=== PATIENT | female | born 1950 | race Caucasian/White ===

== ENCOUNTER 2016-06-13 13:25 | Outpatient (RCR) | payer MEDICARE, OTHER ==
[~2016-06-13 13:25] MED LIST: ALB.5NB20 HHN; ARIP2TAB3 PO; ASP325T PO; CHOL400T3 PO; CLD600T PO; COLE1TAB PO; CYCL10TA9 PO; DIPH1TAB45; FEXO-104 PO; FLT11013 IH; FLUT1DIS26 IH; FURO40TA4 PO; GBPN300C; GENFIBROZIL; HAIR SKIN NAILS PO; HC2.5C30 PR; HC2.5C30 TOP; HYDR-34; HYDR-3820 PO; HYDR1TAB86 PO; HYDR200T46 PO; HYDROXYCHLOROQUINE S; IBP800T; INSASP10V; INSU100C4 SQ; INSU100I11 SQ; INSU100I13 SQ; INSU100V16 SQ; INSU100V8; LEVA1.25 IH; LORA10TA7 PO; LOSA100T7 PO; LSNP10T; MECL25TA3 PO; MELO-195 PO; METO50TA2 PO; MNTL10T PO; MTF500T PO; MTP100TCR PO; MULT-608 PO; OMEP20CA12; PEG4000S2 PO; POTA10CA43 PO; PROP1TAB77; QUININE SULFATE; ROPI2TAB28 PO; RSG4T; SERT100T PO; SRTR100T; TAPE100T PO; TERB15CR8 TP; TIOT18CA IH; VILA40TA PO; [UNRECOGNIZED DRUG - OTHER]; [UNRECOGNIZED DRUG - REMARK]
== END 2016-06-30 12:05 | disposition home or self-care (01) ==
PROVIDERS: ATTEND Family Medicine
DX: M17.11 Unilateral primary osteoarthritis, right knee (principal); R53.1 Weakness

== ENCOUNTER → 2016-09-04 | Outpatient (CLI) | payer MEDICARE, OTHER ==
[2016-09-04 11:54] LABS: BASOPHILS % (AUTO) 0 % (0-10); EOSINOPHILS # (AUTO) 0.2 10^3/uL (0.0-0.3); EOSINOPHILS % (AUTO) 1 % (0-10); LYMPHOCYTES # (AUTO) 1.5 X 10^3 (1.0-4.0); LYMPHOCYTES % (AUTO) 11 % (12-44); MEAN CORPUSCULAR HEMOGLOBIN 29 PG (25-34); MEAN CORPUSCULAR HGB CONC 32 G/DL (32-36); MEAN CORPUSCULAR VOLUME 90 FL (80-99); MEAN PLATELET VOLUME 10.5 FL (7.4-10.4); MONOCYTES # (AUTO) 0.9 X 10^3 (0.0-1.0); MONOCYTES % (AUTO) 6 % (0-12); NEUTROPHILS # (AUTO) 11.3 X 10^3 (1.8-7.8); NEUTROPHILS % (AUTO) 81 % (42-75); PLATELET COUNT 266 10^3/uL (130-400); RED BLOOD COUNT 4.65 10^6/uL (4.35-5.85); RED CELL DISTRIBUTION WIDTH 13.6 % (10.0-14.5)
[2016-09-04 12:12] LABS: BILIRUBIN,TOTAL 0.7 MG/DL (0.1-1.0); CALCIUM 9.5 MG/DL (8.5-10.1); CREATININE SERUM 0.99 MG/DL (0.60-1.30); POTASSIUM 4.5 MMOL/L (3.6-5.0); TOTAL PROTEIN 7.6 GM/DL (6.4-8.2)
== END ==
LOC: LAB 11:37
PROVIDERS: ATTEND Family Medicine
DX: R53.82 Chronic fatigue, unspecified (principal)
CPT/HCPCS: 36415; 80053; 85025

== ENCOUNTER → 2016-09-05 | Outpatient (CLI) | payer MEDICARE, OTHER ==
--- NOTE | 2016-09-05 13:50 | Diagnostic Imaging Report ---
INDICATION: Nonproductive cough. PA and lateral chest. Heart size and pulmonary vascularity are normal. Lungs are clear. There are no effusions or pneumothoraces. IMPRESSION: Negative chest. Dictated by: Dictated on workstation # [id number]
== END ==
LOC: RAD 13:01
PROVIDERS: ATTEND Family Medicine
DX: R05 Cough (principal)
CPT/HCPCS: 71020

== ENCOUNTER → 2016-10-06 | Outpatient (CLI) | payer MEDICARE, OTHER ==
--- NOTE | 2016-10-06 14:32 | Diagnostic Imaging Report ---
PROCEDURE: CT chest without contrast. TECHNIQUE: Multiple contiguous axial images were obtained through the chest without the use of intravenous contrast. INDICATION: Shortness of breath. FINDINGS: There are no previous CT chest examinations available for comparison. The plain film examination of the chest performed on 09/05/2016 failed to show any sign of an acute cardiopulmonary abnormality. On this study, the heart size is within normal limits. There are coronary artery calcifications evident. The aorta is not abnormally dilated measuring 3.6 cm in maximum transverse diameter. There do appear to be a few small calcified nodes in the right hilum. There is no hilar or mediastinal adenopathy identified, although this study is limited in evaluation of adenopathy due to the absence of intravenous contrast. The thyroid gland does seem somewhat prominent, and there are areas of low density in each lobe of the thyroid. These areas of low density measure at least 1 cm in size. I would recommend that ultrasound be performed for further evaluation of the thyroid gland. The lungs are clear. There is no evidence for failure, pneumonia, or for a pleural effusion. There is no solid parenchymal lung mass identified aside from a small calcified granuloma in the right lower lobe. The breasts where visualized show no sign of a mass. According to our records, the patient has not had a mammogram. If the patient has had a recent (within the last year) mammogram, then no further imaging is necessary. However, if the patient has not had a recent mammogram, then mammography would be recommended. The sections through the upper abdomen fail to show any sign of an acute abnormality. The gallbladder is surgically absent. The bone windows are unremarkable for a fracture or for a destructive lesion. IMPRESSION: 1. There is no evidence for an acute cardiopulmonary abnormality. There is no sign of a parenchymal lung mass either. 2. The thyroid gland is prominent, and there are low-density nodules in each lobe. Ultrasound would be recommended for further study. 3. The heart is not enlarged, but coronary artery calcifications are noted. 4. There is no obvious breast mass. Recommendations as above. Dictated by: Dictated on workstation # [id number]
== END ==
LOC: RAD 13:19
PROVIDERS: ATTEND Nurse Practitioner Family
DX: E04.2 Nontoxic multinodular goiter (principal); I25.10 Atherosclerotic heart disease of native coronary artery without angina pectoris; J45.909 Unspecified asthma, uncomplicated; R53.83 Other fatigue
CPT/HCPCS: 71250

== ENCOUNTER → 2016-10-10 | Outpatient (CLI) | payer MEDICARE, OTHER | LOC: RT 15:25 | PROVIDERS: ATTEND Nurse Practitioner Family | DX: R06.00 Dyspnea, unspecified (principal) | CPT/HCPCS: 94060; 94726; 94729 ==

== ENCOUNTER 2016-10-23 20:32 | Outpatient (CLI) | payer MEDICARE, OTHER | END 2016-10-24 05:15 | disposition home or self-care (01) | LOC: SLEEP 20:32 | PROVIDERS: ATTEND Nurse Practitioner Family | DX: G47.10 Hypersomnia, unspecified (principal); R53.83 Other fatigue ==

== ENCOUNTER → 2017-03-03 | Outpatient (CLI) | payer MEDICARE, OTHER ==
[~2017-03-03] MED LIST changes: +METO50TA15 PO; -METO50TA2 PO
[2017-03-03 13:15] LABS: BASOPHILS # (AUTO) 0.1 10^3/uL (0.0-0.1); BASOPHILS % (AUTO) 1 % (0-10); EOSINOPHILS # (AUTO) 0.5 10^3/uL (0.0-0.3); EOSINOPHILS % (AUTO) 5 % (0-10); HEMATOCRIT 42 % (35-52); HEMOGLOBIN 13.7 G/DL (11.5-16.0); LYMPHOCYTES # (AUTO) 1.9 X 10^3 (1.0-4.0); LYMPHOCYTES % (AUTO) 20 % (12-44); MEAN CORPUSCULAR HEMOGLOBIN 30 PG (25-34); MEAN CORPUSCULAR HGB CONC 33 G/DL (32-36); MEAN CORPUSCULAR VOLUME 91 FL (80-99); MEAN PLATELET VOLUME 9.8 FL (7.4-10.4); MONOCYTES # (AUTO) 0.7 X 10^3 (0.0-1.0); MONOCYTES % (AUTO) 7 % (0-12); NEUTROPHILS # (AUTO) 6.3 X 10^3 (1.8-7.8); NEUTROPHILS % (AUTO) 67 % (42-75); PLATELET COUNT 263 10^3/uL (130-400); RED BLOOD COUNT 4.55 10^6/uL (4.35-5.85); RED CELL DISTRIBUTION WIDTH 13.3 % (10.0-14.5); WHITE BLOOD COUNT 9.4 10^3/uL (4.3-11.0)
--- NOTE | 2017-03-03 13:44 | Diagnostic Imaging Report ---
INDICATION: Cough. PA and lateral chest. FINDINGS: Heart size and pulmonary vascularity are normal. Lungs are clear. There are no effusions or pneumothoraces. IMPRESSION: Negative chest. Dictated by: Dictated on workstation # [id number]
== END ==
LOC: RAD 12:54
PROVIDERS: ATTEND Nurse Practitioner Family
DX: R05 Cough (principal)
CPT/HCPCS: 36415; 71046; 85025; 86738

== ENCOUNTER → 2017-06-03 | Outpatient (CLI) | payer MEDICARE, OTHER ==
--- NOTE | 2017-06-03 14:50 | Diagnostic Imaging Report ---
INDICATION: Preop for right knee replacement surgery. TIME OF EXAMINATION: 2:12 PM. COMPARISON: 03/03/2017. FINDINGS: The heart size is stable. The lungs are clear. No infiltrate or effusion is seen. A calcified nodule in the right lower lobe is stable, consistent with a granuloma. No effusion or pneumothorax is seen. IMPRESSION: Stable chest. No acute abnormality is detected. Dictated by: Dictated on workstation # [id number]
== END ==
LOC: CARD 13:16
PROVIDERS: ATTEND Family Medicine
DX: Z01.810 Encounter for preprocedural cardiovascular examination (principal); Z01.811 Encounter for preprocedural respiratory examination
CPT/HCPCS: 71046; 93005

== ENCOUNTER 2018-04-08 11:38 | Emergency (ER) | payer MEDICARE, OTHER ==
[~2018-04-08] VITALS: Ht 177.8 cm; Wt 151.3 kg
--- NOTE | 2018-04-08 12:02 | ED Fall/Injury ---
General Chief Complaint: Trauma-Non Activation Stated Complaint: PATIENT FELL AND HURT LT ELBOW Nursing Triage Note: pt presents to ed with complaints of fall. pt reports she landed on her knees and l elbow. Source: patient Exam Limitations: no limitations History of Present Illness Date Seen by Provider: Apr 08, 2018 Time Seen by Provider: 11:59 Initial Comments To ER per private vehicle with reports of a fall. This occurred at home this morning, she fell forward landing on knees and elbows. Complains of only left elbow pain. Minor abrasions to the anterior knees. Did not hit her head. She had to call police to help lift her back up. Location Injury Occurred: home residence Occurred: just prior to arrival Severity: moderate Injuries/Pain Location: upper extremity Loss of Consciousness: no loss of consciousness Allergies and Home Medications Allergies Coded Allergies: Cephalosporins (Verified Allergy, Mild, 06/11/06) Sulfa (Sulfonamide Antibiotics) (Verified Allergy, Mild, 06/11/06) bacitracin (Verified Allergy, Mild, 06/11/06) gramicidin D (Verified Allergy, Mild, 06/11/06) iodine (Verified Allergy, Mild, 06/11/06) neomycin (Verified Allergy, Mild, 06/11/06) penicillin G (Verified Allergy, Mild, 06/11/06) polymyxin B (Verified Allergy, Mild, 06/11/06) erythromycin base (Verified Allergy, Unknown, 06/17/06) ropinirole (Unverified Adverse Reaction, Intermediate, vomiting, 09/30/14) Home Medications Albuterol Sulf 20 Ml Nebu, 20 ML HHN BID, (Reported) Aripiprazole 2 Mg Tablet, 2 MG PO DAILY, (Reported) Aspirin 325 Mg Tab, 325 MG PO DAILY, (Reported) start 2009 Calcium Carbonate/Vitamin D3 1 Tab Tablet, 1 TAB PO BID, (Reported) Cholecalciferol (Vitamin D3) 400 Unit Tab.chew, 800 UNIT PO DAILY, (Reported) Cyclobenzaprine Hcl 10 Mg Tablet, 1 EACH PO Q8HR PRN, (Reported) Fluticasone/Salmeterol 1 Disk Inhp, 1 IH BID, (Reported) 1 PUFF BID Furosemide 40 Mg Tablet, 1 EACH PO DAILY, (Reported) Hydrocodone/Acetaminophen 1 Each Tablet, 1 TAB PO Q4H, (Reported) Hydroxychloroquine Sulfate 200 Mg Tablet, 200 MG PO BID, (Reported) Insulin Aspart 100 Unit/1 Ml Susp, 30 UNIT SQ AC, (Reported) Insulin Glargine,Hum.rec.anlog 300 Units/3 Ml Soln, 70 UNITS SQ HS, (Reported) Levalbuterol Hcl 1.25 Mg/0.5 Ml Vial.neb, 1.25 MG IH PRN, (Reported) Loratadine 10 Mg Tablet, 10 MG PO DAILY, (Reported) Meclizine HCl 25 Mg Tablet, 25 MG PO Q6H PRN for DIZZINESS Prescribed by: EMY ADLER on 09/30/141940 Meloxicam 15 Mg Tablet, 1 EACH PO DAILY, (Reported) Metformin Hcl 500 Mg Tablet, 1,000 MG PO BID, (Reported) hold dose unitl 2009 Metoprolol Tartrate 50 Mg Tablet, 25 MG PO BID, (Reported) Montelukast Sodium 10 Mg Tablet, 1 TAB PO DAILY, (Reported) Multivitamins 1 Tab Tablet, 1 TAB PO BID, (Reported) Potassium Chloride 10 Meq Capsule.sa, 1 EACH PO DAILY WITH FOOD, (Reported) Patient Home Medication List Home Medication List Reviewed: Yes Review of Systems Review of Systems Constitutional: see HPI Eyes: No Symptoms Reported Ears, Nose, Mouth, Throat: no symptoms reported Respiratory: no symptoms reported Cardiovascular: no symptoms reported Genitourinary: no symptoms reported Musculoskeletal: see HPI Skin: see HPI Psychiatric/Neurological: No Symptoms Reported Past Wayqzam-Jxernv-Txnlpi Hx Patient Social History Alcohol Use: Denies Use Recreational Drug Use: No Smoking Status: Never a Smoker Recent Foreign Travel: No Contact w/Someone Who Travel: No Recent Hopitalizations: Yes (GALLBLADDDER, ASTHMA ADMISSIONS) Physical Abuse: No Sexual Abuse: No Mistreated: No Fear: No Seasonal Allergies Seasonal Allergies: Yes Past Medical History Surgeries: Yes (Left total knee) Gallbladder, Hysterectomy Respiratory: Yes (takes allergy shots) Cardiac: Yes Hypertension Neurological: No Reproductive Disorders: Yes (3 non-ca tumors,bled x3 yrs.then hysterectomy) Genitourinary: No Gastrointestinal: No Musculoskeletal: Yes (sees chiropractor) Arthritis, Rheumatoid Arthritis Endocrine: Yes Diabetes, Non-Insulin dep, Lupus Psychosocial: Yes Blood Disorders: Yes (was once told she had lupus,then later told no) Physical Exam Vital Signs Capillary Refill : Height, Weight, BMI Height: 5'10" Weight: 332lbs. oz. 150.794669fs; BMI Method: General Appearance: WD/WN, no apparent distress HEENT: PERRL/EOMI, normal ENT inspection Neck: non-tender, full range of motion Respiratory: no respiratory distress, no accessory muscle use Gastrointestinal: normal bowel sounds, non tender Extremities: normal range of motion, other (left elbow bruising posteriorly) Neurologic/Psychiatric: alert, normal mood/affect, oriented x 3 Skin: normal color, warm/dry, other (minor superficial abrasions to the anterior knees bilaterally, minor to the posterior left elbow.) Kirsty Coma Score Best Eye Response: (4) Open Spontaneously Best Verbal Response: (5) Oriented Best Motor Response: (6) Obeys Commands Kirsty Total: 15 Progress/Results/Core Measures Results/Orders My Orders Orders - ANY MAJOR APRN Elbow, Left, 3 Views (04/08/18 11:59) Departure Impression Primary Impression: Contusion of elbow Qualified Codes: S50.02XA - Contusion of left elbow, initial encounter Disposition: HOME, SELF-CARE Condition: Stable Departure-Patient Inst. Decision time for Depature: 12:01 Referrals: EVANGELINA MONTELONGO MD (PCP/Family) Primary Care Physician Patient Instructions: Contusion (DC) Add. Discharge Instructions: 1. Return to ER for any concerns 2. Tylenol and Motrin for pain 3. Follow-up with your doctor next week. He denies pack for 30 minutes every 1- 2 hours for the next 48 hours. All discharge instructions reviewed with patient and/or family. Voiced understanding. ANY MAJOR APRN Apr 08, 2018 12:02
--- NOTE | 2018-04-08 12:40 | Diagnostic Imaging Report ---
Indication: Fall with left elbow injury. Time of exam 12:03 PM 3 views of the left elbow were obtained. Alignment is normal. No fracture, dislocation or effusion is identified. There is some soft tissue swelling posteriorly. Impression: Soft tissue swelling. No acute bony abnormality is detected. Dictated by: Dictated on workstation # [id number]
[2018-04-08 12:47] VITALS: BP 147/80
== END 2018-04-08 12:47 | disposition home or self-care (01) ==
LOC: EDUNIT# 11:38 → ER 11:40
DX: S50.02XA Contusion of left elbow, initial encounter (principal); I10 Essential (primary) hypertension; M06.9 Rheumatoid arthritis, unspecified; E11.9 Type 2 diabetes mellitus without complications; M32.9 Systemic lupus erythematosus, unspecified; J45.909 Unspecified asthma, uncomplicated; Z88.1 Allergy status to other antibiotic agents; Z88.2 Allergy status to sulfonamides; Z88.0 Allergy status to penicillin; Z91.041 Radiographic dye allergy status; Z88.8 Allergy status to other drugs, medicaments and biological substances; Z79.82 Long term (current) use of aspirin; Z79.4 Long term (current) use of insulin; Z90.710 Acquired absence of both cervix and uterus; V48.4XXA Person boarding or alighting a car injured in noncollision transport accident, initial encounter; Y92.009 Unspecified place in unspecified non-institutional (private) residence as the place of occurrence of the external cause
CPT/HCPCS: 73080

== ENCOUNTER 2020-02-29 05:35 | Outpatient (RCR) | payer MEDICARE, OTHER ==
[~2020-02-29] VITALS: Ht 177.8 cm; Wt 154.0 kg
[~2020-02-29 05:35] MED LIST changes: +ACHYD1T PO; -HYDR-3820 PO
[2020-02-29] MEDS ORDERED: GLUC-219 PO (11:02)
[2020-02-29] MEDS ORDERED: CETI10TA17 PO (11:02)
[2020-02-29] MEDS ORDERED: EMPA25TA PO (11:02)
[2020-02-29] MEDS ORDERED: BUDE10.2 IH (11:02)
[2020-02-29] MEDS ORDERED: OXYM15SP42 NS (11:05)
== END 2020-02-29 10:17 | disposition home or self-care (01) ==
LOC: PREOP 05:35
PROVIDERS: ATTEND Specialist
DX: Z01.812 Encounter for preprocedural laboratory examination (principal); H25.11 Age-related nuclear cataract, right eye; Z20.822 Contact with and (suspected) exposure to COVID-19
CPT/HCPCS: 87635

== ENCOUNTER 2020-03-02 08:43 | Day surgery (SDC) | payer MEDICARE, OTHER ==
[~2020-03-02] VITALS: Ht 177.8 cm; Wt 154.0 kg
[~2020-03-02 08:43] MED LIST changes: +BUDE10.2 IH; +CETI10TA17 PO; +EMPA25TA PO; +GLUC-219 PO; +OXYM15SP42 NS
[2020-03-02 09:00] VITALS: BP 163/81
[2020-03-02] MEDS ORDERED: MOXIFLOXACIN OPHTH SOLN 5 MG/ML 0.3 ML SYRINGE OP ONE (09:00)
[2020-03-02] MEDS ORDERED: TIMOLOL MALEATE 0.5% 5 ML (TIMOPTIC) BTL OU PRN (09:00)
[2020-03-02] MEDS ORDERED: POVIDONE (BETADINE) OPHTH SOLN 5% 30 ML OP ONE (09:00)
[2020-03-02] MEDS ORDERED: LIDOCAINE PF 1% 2 ML VIAL IR PRN (09:00)
[2020-03-02] MEDS ORDERED: MIDAZOLAM 2 MG/2 ML (VERSED) VIAL ONE (09:04)
[2020-03-02] MEDS: PHENYLEPHRINE 10% OPHTH (NEO-SYN) 5 ML BTL OU SCH ×4 (09:16→09:35)
[2020-03-02] MEDS: TETRACAINE 0.5% OPHTH SOLN 4 ML BTL (SINGLE DOSE ONLY) OU PRN ×4 (09:16→09:35)
[2020-03-02] MEDS: TROPICAMIDE 1% OPH SOLN (MYDRIACYL) 15 ML BTL OP SCH ×2 (09:24→09:29)
--- NOTE | 2020-03-02 09:37 | Ophthalmologist Pre-Op Note ---
Pre-Operative Progress Note H&P Reviewed The H&P was reviewed, patient examined and no changes noted. Date H&P Reviewed: Mar 02, 2020 Time H&P Reviewed: 09:37 Pre-Op Dx Cataract, Right Eye AUGIE SHELBY MD Mar 02, 2020 09:37
--- NOTE | 2020-03-02 10:00 | Ophthalmology Operative Report ---
Cataract removal/placement IOL PREOPERATIVE DIAGNOSIS: Cataract Right Eye POSTOPERATIVE DIAGNOSIS: Cataract Right Eye PROCEDURE: Cataract removal and placement of posterior chamber implant, right eye SURGEON: Meng Shelby ANESTHESIA: Topical with sedation COMPLICATIONS: None ESTIMATED BLOOD LOSS: Minimal DESCRIPTION OF PROCEDURE: After proper informed consent was obtained, the patient, a 69 female, was taken to the Operating Room and the right eye was anesthetized with tetracaine. The right eye was then prepped and draped in the usual manner. A wire lid speculum was placed. A paracentesis was made at the left hand position. Preservative free lidocaine was injected into the anterior chamber followed by viscoelastic. A clear corneal incision was made in the temporal position. A capsulorrhexis was preformed and the central nuclear and cortical material were removed. The posterior capsule was polished and Michael 20.5 AU00T0 IOL was placed into the capsular bag. The residual viscoelastic was aspirated and balanced saline solution was injected into the anterior chamber. Moxifloxacin was injected into the anterior chamber. The wound was checked and found to be water tight. The patient tolerated the procedure well without complications. MENG SHELBY MD Mar 02, 2020 10:00
[2020-03-02 10:20] VITALS: BP 161/81
--- NOTE | 2020-03-02 11:15 | Anesthesia-General Post-Op ---
MAC Patient Condition Mental Status/LOC: Same as Preop Cardiovascular: Satisfactory Nausea/Vomiting: Absent Respiratory: Satisfactory Pain: Controlled Complications: Absent Post Op Complications Complications None Follow Up Care/Instructions Patient Instructions None needed. Anesthesiology Discharge Order Discharge Order Patient is doing well, no complaints, stable vital signs, no apparent adverse anesthesia problems. No complications reported per nursing. JOE LAYTON CRNA Mar 02, 2020 11:15
== END 2020-03-02 10:20 | disposition home or self-care (01) ==
LOC: SDC 08:43
PROVIDERS: ATTEND Specialist
DX: E11.36 Type 2 diabetes mellitus with diabetic cataract (principal); H25.11 Age-related nuclear cataract, right eye; I10 Essential (primary) hypertension; J45.909 Unspecified asthma, uncomplicated; G47.33 Obstructive sleep apnea (adult) (pediatric); M19.90 Unspecified osteoarthritis, unspecified site; E66.01 Morbid (severe) obesity due to excess calories; Z68.42 Body mass index [BMI] 45.0-49.9, adult; Z79.899 Other long term (current) drug therapy; Z88.0 Allergy status to penicillin; Z88.1 Allergy status to other antibiotic agents; Z88.2 Allergy status to sulfonamides; Z91.041 Radiographic dye allergy status; Z88.8 Allergy status to other drugs, medicaments and biological substances; Z83.3 Family history of diabetes mellitus
CPT/HCPCS: 66984; 82962; V2632

== ENCOUNTER 2020-03-14 05:30 | Outpatient (RCR) | payer MEDICARE, OTHER | END 2020-03-14 09:53 | disposition home or self-care (01) | LOC: PREOP 05:30 | PROVIDERS: ATTEND Specialist | DX: Z01.812 Encounter for preprocedural laboratory examination (principal); Z20.822 Contact with and (suspected) exposure to COVID-19 | CPT/HCPCS: 87635 ==

== ENCOUNTER 2020-03-16 07:40 | Day surgery (SDC) | payer MEDICARE, OTHER ==
[~2020-03-16] VITALS: Ht 177 cm; Wt 154.0 kg
[2020-03-16] MEDS ORDERED: POVIDONE (BETADINE) OPHTH SOLN 5% 30 ML OP ONE (07:45)
[2020-03-16] MEDS ORDERED: LIDOCAINE PF 1% 2 ML VIAL IR PRN (07:45)
[2020-03-16] MEDS ORDERED: MOXIFLOXACIN OPHTH SOLN 5 MG/ML 0.3 ML SYRINGE OP ONE (07:45)
[2020-03-16] MEDS ORDERED: TIMOLOL MALEATE 0.5% 5 ML (TIMOPTIC) BTL OU PRN (07:45)
[2020-03-16] MEDS ORDERED: MIDAZOLAM 2 MG/2 ML (VERSED) VIAL ONE (07:56)
[2020-03-16] MEDS: TETRACAINE 0.5% OPHTH SOLN 4 ML BTL (SINGLE DOSE ONLY) OU PRN ×4 (08:02→08:17)
[2020-03-16] MEDS: PHENYLEPHRINE 10% OPHTH (NEO-SYN) 5 ML BTL OU SCH ×3 (08:07→08:17)
[2020-03-16] MEDS: TROPICAMIDE 1% OPH SOLN (MYDRIACYL) 15 ML BTL OP SCH ×3 (08:07→08:17)
--- NOTE | 2020-03-16 08:13 | Ophthalmologist Pre-Op Note ---
Pre-Operative Progress Note H&P Reviewed The H&P was reviewed, patient examined and no changes noted. Date H&P Reviewed: Mar 16, 2020 Time H&P Reviewed: 08:13 Pre-Op Dx Cataract, Left Eye AUGIE SHELBY MD Mar 16, 2020 08:13
[2020-03-16 08:20] VITALS: BP 181/90
[2020-03-16 08:45] VITALS: BP 161/81
--- NOTE | 2020-03-16 08:48 | Ophthalmology Operative Report ---
Cataract removal/placement IOL PREOPERATIVE DIAGNOSIS: Cataract Left Eye POSTOPERATIVE DIAGNOSIS: Cataract Left Eye PROCEDURE: Cataract removal and placement of posterior chamber implant, left eye SURGEON: Meng Shelby ANESTHESIA: Topical with sedation COMPLICATIONS: None ESTIMATED BLOOD LOSS: Minimal DESCRIPTION OF PROCEDURE: After proper informed consent was obtained, the patient, a 69 female, was taken to the Operating Room and the left eye was anesthetized with tetracaine. The left eye was then prepped and draped in the usual manner. A wire lid speculum was placed. A paracentesis was made at the left hand position. Preservative free lidocaine was injected into the anterior chamber followed by viscoelastic. A clear corneal incision was made in the temporal position. A capsulorrhexis was preformed and the central nuclear and cortical material were removed. The posterior capsule was polished and an Michael 21.5 AU00T0 was placed into the capsular bag. The residual viscoelastic was aspirated and balanced saline solution was injected into the anterior chamber. Moxifloxacin was injected into the anterior chamber. The wound was checked and found to be water tight. The patient tolerated the procedure well without complications. MENG SHELBY MD Mar 16, 2020 08:48
--- NOTE | 2020-03-16 09:28 | Anesthesia-General Post-Op ---
MAC Patient Condition Mental Status/LOC: Same as Preop Cardiovascular: Satisfactory Nausea/Vomiting: Absent Respiratory: Satisfactory Pain: Controlled Complications: Absent Post Op Complications Complications None Follow Up Care/Instructions Patient Instructions None needed. Anesthesiology Discharge Order Discharge Order Patient is doing well, no complaints, stable vital signs, no apparent adverse anesthesia problems. No complications reported per nursing. MAGGIE GAR CRNA Mar 16, 2020 09:28
== END 2020-03-16 09:00 ==
LOC: SDC 07:40
PROVIDERS: ATTEND Specialist
DX: E11.36 Type 2 diabetes mellitus with diabetic cataract (principal); H25.12 Age-related nuclear cataract, left eye; I10 Essential (primary) hypertension; J45.909 Unspecified asthma, uncomplicated; G47.33 Obstructive sleep apnea (adult) (pediatric); M19.90 Unspecified osteoarthritis, unspecified site; E66.01 Morbid (severe) obesity due to excess calories; Z68.42 Body mass index [BMI] 45.0-49.9, adult; Z79.899 Other long term (current) drug therapy; Z88.2 Allergy status to sulfonamides; Z88.0 Allergy status to penicillin; Z88.1 Allergy status to other antibiotic agents; Z88.8 Allergy status to other drugs, medicaments and biological substances; Z91.041 Radiographic dye allergy status
CPT/HCPCS: 66984; 82962; V2632

== ENCOUNTER → 2021-10-31 | Outpatient (CLI) | payer MEDICARE, OTHER ==
[~2021-10-31] MED LIST changes: +RT-ALBUTEROL SULF 2.5 MG/3 ML PRE-MIX VIAL INH ONE
== END ==
LOC: RT 10:23
PROVIDERS: ATTEND Nurse Practitioner Family
DX: J45.40 Moderate persistent asthma, uncomplicated (principal); E66.01 Morbid (severe) obesity due to excess calories
CPT/HCPCS: 94060; 94726; 94729

== ENCOUNTER 2022-05-30 16:51 | Emergency (ER) | payer MEDICARE, OTHER ==
[~2022-05-30] VITALS: Ht 177.8 cm; Wt 158.3 kg
[~2022-05-30 16:51] MED LIST changes: -RT-ALBUTEROL SULF 2.5 MG/3 ML PRE-MIX VIAL INH ONE
[2022-05-30 17:21] LABS: BASOPHILS % (AUTO) 0 % (0-10); EOSINOPHILS # (AUTO) 0.2 10^3/uL (0.0-0.3); EOSINOPHILS % (AUTO) 2 % (0-10); HEMATOCRIT 38 % (35-52); HEMOGLOBIN 10.8 g/dL (11.5-16.0); LYMPHOCYTES # (AUTO) 1.6 10^3/uL (1.0-4.0); LYMPHOCYTES % (AUTO) 15 % (12-44); MEAN CORPUSCULAR HEMOGLOBIN 24 pg (25-34); MEAN CORPUSCULAR HGB CONC 29 g/dL (32-36); MEAN CORPUSCULAR VOLUME 83 fL (80-99); MEAN PLATELET VOLUME 9.4 fL (9.0-12.2); MONOCYTES # (AUTO) 0.8 10^3/uL (0.0-1.0); MONOCYTES % (AUTO) 8 % (0-12); NEUTROPHILS # (AUTO) 7.8 10^3/uL (1.8-7.8); NEUTROPHILS % (AUTO) 74 % (42-75); PLATELET COUNT 271 10^3/uL (130-400); WHITE BLOOD COUNT 10.5 10^3/uL (4.3-11.0)
--- NOTE | 2022-05-30 17:23 | ED Chest Pain ---
General Chief Complaint: Chest Pain Stated Complaint: CHEST PAIN Source: patient Exam Limitations: no limitations History of Present Illness Date Seen by Provider: May 30, 2022 Time Seen by Provider: 16:56 Initial Comments 71-year-old female presents to the ED with complaints of left-sided chest pain that has been constant for 6 weeks. She reports she was seen at [facility] today, and they sent her here. She states she was seen there a couple weeks ago for a cough and the chest pain, she was started on an antibiotic which she has finished. Reports she returned to see them because she has continued chest pain. She denies fevers, abdominal pain, nausea, vomiting. She does report some worsening shortness of breath, history of COPD and asthma. She states nothing makes the pain better or worse. Denies any radiation of pain. She is able to point to the location of pain with 1 finger. Past medical history includes diabetes, hypertension, lupus. Allergies and Home Medications Allergies Coded Allergies: Cephalosporins (Verified Allergy, Mild, 06/11/06) Sulfa (Sulfonamide Antibiotics) (Verified Allergy, Mild, 06/11/06) bacitracin (Verified Allergy, Mild, 06/11/06) gramicidin D (Verified Allergy, Mild, 06/11/06) iodine (Verified Allergy, Mild, 06/11/06) neomycin (Verified Allergy, Mild, 06/11/06) penicillin G (Verified Allergy, Mild, 06/11/06) polymyxin B (Verified Allergy, Mild, 06/11/06) erythromycin base (Verified Allergy, Unknown, 06/17/06) ropinirole (Unverified Adverse Reaction, Intermediate, vomiting, 09/30/14) Patient Home Medication List Home Medication List Reviewed: Yes Albuterol Sulf (Proventil Inh Soln) 20 Ml Nebu, 20 ML HHN BID, (Reported) Entered as Reported by: TRISTAN BHATTI on 01/07/12 1540 Budesonide/Formoterol Fumarate (Symbicort 160-4.5 Mcg Inhaler) 10.2 Gm Hfa.aer.ad, 2 PUFF IH BID, (Reported) Entered as Reported by: GARRY MILNER on 02/29/20 1102 Cetirizine HCl (Cetirizine HCl) 10 Mg Tablet, 10 MG PO, (Reported) Entered as Reported by: GARRY MILNER on 02/29/201101 Cholecalciferol (Vitamin D3) (Vitamin D3) 400 Unit Tab.chew, 800 UNIT PO DAILY, (Reported) Entered as Reported by: HARLEY MUSA on 09/30/141834 Empagliflozin (Jardiance) 25 Mg Tablet, 25 MG PO, (Reported) Entered as Reported by: GARRY MILNER on 02/29/20 110 Fluticasone/Salmeterol (Advair 250 Mcg/50 Mcg 60's) 1 Disk Inhp, 1 IH BID PRN for AIR HUNGER, (Reported) Entered as Reported by: MARIA TERESA PALENCIA on 11/22/09 1233 Furosemide (Furosemide) 40 Mg Tablet, 1 EACH PO DAILY, (Reported) Entered as Reported by: EMY FIGUEROA on 01/10/10 1427 Gabapentin (Neurontin) 300 Mg Tablet, (Reported) Entered as Reported by: ALE MALDONADO on 06/11/06 1353 Glucosamine/D3/Boswellia Keyonna (Osteo Bi-Flex Tablet) 1 Each Tablet, 1 EACH PO, (Reported) Entered as Reported by: GARRY MILNER on 02/29/201101 Hydrocodone Bit/Acetaminophen (HYDROcodone/APAP 10/325 TABLET) 1 Each Tablet, 1 TAB PO Q4H, (Reported) Entered as Reported by: HARLEY MUSA on 09/30/141834 Hydroxychloroquine Sulfate (Hydroxychloroquine Sulfate) 200 Mg Tablet, 200 MG PO BID, (Reported) Entered as Reported by: HARLEY MUSA on 09/30/141834 Insulin Aspart (Novolog) 100 Unit/1 Ml Susp, 20 UNIT SQ AC, (Reported) Entered as Reported by: HARLEY MUSA on 09/30/141834 Insulin Glargine,Hum.rec.anlog (Lantus) 300 Units/3 Ml Soln, 40 UNITS SQ HS, (Reported) Entered as Reported by: TRISTAN BHATTI on 01/07/12 154 Levalbuterol Hcl (Xopenex 1.25 Mg) 1.25 Mg/0.5 Ml Vial.neb, 1.25 MG IH PRN, (Reported) Entered as Reported by: TRISTAN BHATTI on 01/07/12 154 Lisinopril (Zestril 10 Mg) 10 Mg Tablet, (Reported) Entered as Reported by: JONO LINO on 06/17/06 1439 Loratadine (Loratadine) 10 Mg Tablet, 10 MG PO DAILY PRN for AIR HUNGER, (Reported) Entered as Reported by: HARLEY MUSA on 09/30/14 1835 Meloxicam (Meloxicam) 15 Mg Tablet, 1 EACH PO DAILY, (Reported) Entered as Reported by: TRISTAN BHATTI on 01/07/12 1540 Metformin Hcl (Metformin 500 Mg) 500 Mg Tablet, 1,000 MG PO BID, (Reported) Entered as Reported by: ALE MALDONADO on 06/11/06 1401 Metoprolol Tartrate (Metoprolol Tartrate) 50 Mg Tablet, 25 MG PO BID, (Reported) Entered as Reported by: HARLEY MUSA on 09/30/14 183 Montelukast Sodium (Singulair 10 Mg) 10 Mg Tablet, 1 TAB PO DAILY, (Reported) Entered as Reported by: EMY FIGUEROA on 01/10/10 1300 Omeprazole (Omeprazole) 20 Mg Capsule.dr, (Reported) Entered as Reported by: ALE MALDONADO on 06/11/06 1401 Oxymetazoline HCl (Vicks Sinex) 15 Ml [place], 15 ML NS, (Reported) Entered as Reported by: GARRY MILNER on 02/29/20 1105 Potassium Chloride (Potassium Chloride 10 Meq Cap) 10 Meq Capsule.sa, 1 EACH PO DAILY WITH FOOD, (Reported) Entered as Reported by: EMY FIGUEROA on 01/10/10 1427 [allergyshot] , (Reported) Entered as Reported by: TRISTAN BHATTI on 01/07/12 1540 Review of Systems Review of Systems Constitutional: see HPI Past Metdmkj-Ipxief-Ngjeew Hx Seasonal Allergies Seasonal Allergies: Yes Past Medical History Surgeries: Yes (Left total knee) Gallbladder, Hysterectomy Respiratory: Yes (takes allergy shots) Cardiac: Yes Hypertension Neurological: No Reproductive Disorders: Yes (3 non-ca tumors,bled x3 yrs.then hysterectomy) Genitourinary: No Gastrointestinal: No Musculoskeletal: Yes (sees chiropractor) Arthritis, Rheumatoid Arthritis Endocrine: Yes Diabetes, Non-Insulin dep, Lupus Psychosocial: Yes Blood Disorders: Yes (was once told she had lupus,then later told no) Physical Exam Vital Signs Vital Signs - First Documented 05/30/22 16:57 Temp 36.2 Pulse 126 Resp 14 B/P (MAP) 177/100 (125) Pulse Ox 97 Capillary Refill : Height, Weight, BMI Height: 5'10" Weight: 333lbs. 8.0oz. 151.719585om; 47.63 BMI Method:Stated General Appearance: No Apparent Distress, WD/WN Neck: Non Tender, Supple Respiratory: Lungs Clear, Normal Breath Sounds, No Accessory Muscle Use, No Respiratory Distress, Other (chest tender to palpation) Cardiovascular: Tachycardia Extremity: Normal Inspection, Normal Range of Motion Neurologic/Psychiatric: Alert, Normal Mood/Affect Skin: Normal Color, Warm/Dry Progress/Results/Core Measures Results/Orders Lab Results Laboratory Tests Test 05/30/22 17:09 Range/Units White Blood Count 10.5 4.3-11.0 10^3/uL Red Blood Count 4.54 3.80-5.11 10^6/uL Hemoglobin 10.8 L 11.5-16.0 g/dL Hematocrit 38 35-52 % Mean Corpuscular Volume 83 80-99 fL Mean Corpuscular Hemoglobin 24 L 25-34 pg Mean Corpuscular Hemoglobin Concent 29 L 32-36 g/dL Red Cell Distribution Width 17.1 H 10.0-14.5 % Platelet Count 271 130-400 10^3/uL Mean Platelet Volume 9.4 9.0-12.2 fL Immature Granulocyte % (Auto) 1 % Neutrophils (%) (Auto) 74 42-75 % Lymphocytes (%) (Auto) 15 12-44 % Monocytes (%) (Auto) 8 0-12 % Eosinophils (%) (Auto) 2 0-10 % Basophils (%) (Auto) 0 0-10 % Neutrophils # (Auto) 7.8 1.8-7.8 10^3/uL Lymphocytes # (Auto) 1.6 1.0-4.0 10^3/uL Monocytes # (Auto) 0.8 0.0-1.0 10^3/uL Eosinophils # (Auto) 0.2 0.0-0.3 10^3/uL Basophils # (Auto) 0.0 0.0-0.1 10^3/uL Immature Granulocyte # (Auto) 0.1 0.0-0.1 10^3/uL Prothrombin Time 13.7 12.2-14.7 SEC INR Comment 1.0 0.8-1.4 Activated Partial Thromboplast Time 34 24-35 SEC D-Dimer 1.51 H 0.00-0.49 UG/ML Sodium Level 139 135-145 MMOL/L Potassium Level 4.9 3.6-5.0 MMOL/L Chloride Level 102 98-107 MMOL/L Carbon Dioxide Level 26 21-32 MMOL/L Anion Gap 11 5-14 MMOL/L Blood Urea Nitrogen 15 7-18 MG/DL Creatinine 1.12 0.60-1.30 MG/DL Estimat Glomerular Filtration Rate 53 BUN/Creatinine Ratio 13 Glucose Level 151 H 70-105 MG/DL Calcium Level 9.5 8.5-10.1 MG/DL Corrected Calcium 9.6 8.5-10.1 MG/DL Magnesium Level 2.0 1.6-2.4 MG/DL Total Bilirubin 0.3 0.1-1.0 MG/DL Aspartate Amino Transf (AST/SGOT) 29 5-34 U/L Alanine Aminotransferase (ALT/SGPT) 24 0-55 U/L Alkaline Phosphatase 84 40-136 U/L Troponin I < 0.028 <0.028 NG/ML Total Protein 7.3 6.4-8.2 GM/DL Albumin 3.9 3.2-4.5 GM/DL Thyroid Stimulating Hormone (TSH) 0.57 0.35-4.94 UIU/ML Free Thyroxine 1.04 0.70-1.48 NG/DL My Orders Orders - WILTON GAMBOA [employer] Cbc With Automated Diff (05/30/22 16:55) Magnesium (05/30/22 16:55) Chest 1 View, Ap/Pa Only (05/30/22 16:55) Ekg Tracing (05/30/22 16:55) Comprehensive Metabolic Panel (05/30/22 16:55) Protime With Inr (05/30/22 16:55) Partial Thromboplastin Time (05/30/22 16:55) Monitor-Rhythm Ecg Trace Only (05/30/22 16:55) Ed Iv/Invasive Line Start (05/30/22 16:55) Fibrin Degradation Products (05/30/22 16:55) Troponin I [place] (05/30/22 16:55) Ns Iv 1000 Ml (Sodium Chloride 0.9%) (05/30/22 17:30) Ct Angio Chest W (R/O Pe) (05/30/22 17:39) Methylprednisolone Sod Succ (Solu-Medrol (05/30/22 18:00) Diphenhydramine Injection (Benadryl Inje (05/30/22 18:00) Iohexol Injection (Omnipaque 350 Mg/Ml 1 (05/30/22 18:45) Received Contrast (Hold Metformin- Contr (05/30/22 18:45) Ns (Ivpb) (Sodium Chloride 0.9% Ivpb Bag (05/30/22 18:45) Thyroid Stimulating Hormone (05/30/22 18:58) Free T4 (Free Thyroxine) (05/30/22 18:58) Ns Iv 1000 Ml (Sodium Chloride 0.9%) (05/30/22 19:45) Cho 75g/M 0snack (21-2400 Dominick) (05/30/22 Dinner) Metoprolol Tartrate Injection (Lopressor (05/30/22 21:00) Medications Given in ED Vital Signs/I&O 05/30/22 05/30/22 16:57 21:34 Temp 36.2 Pulse 126 105 Resp 14 16 B/P (MAP) 177/100 (125) 159/104 Pulse Ox 97 95 Progress Progress Note : Time: 17:22 Progress Note Patient seen and evaluated, resting company in bed, no acute distress. Based on exam and symptoms, work-up initiated including EKG, CBC, CMP, magnesium, troponin, D-dimer, chest x-ray. IV fluids ordered for tachycardia. 1739 Labs reviewed. CBC shows decreased hemoglobin 10.8, normal hematocrit 38. Patient reports she was recently started on iron for anemia. CMP grossly normal. Glucose elevated 151. Magnesium normal 2.0. Troponin negative. Coags normal. D-dimer elevated 1.51. CT angio ordered. Chest x-ray reviewed. No acute cardiopulmonary process. Current results discussed with patient. 1857 CT reviewed. Negative for PE. Does show enlarged thyroid. TSH and free T4 added on due to tachycardia and enlarged thyroid. 2046 TSH and free T4 reviewed. Within normal limits. Results discussed with patient. Patient states she is aware of her enlarged thyroid, and she is supposed to have a biopsy of her thyroid. Will order one-time dose of IV metoprolol here now for continued tachycardia, although tachycardia is improved after one liter of IV fluid. Patient takes metoprolol, and is due for her night dose. Will instruct her to take that when she gets home. 2114 Heart rate improved after metoprolol. Discharge instructions and return precautions provided. Initial ECG Impression Date: May 30, 2022 Initial ECG Impression Time: 17:04 Initial ECG Rate: 122 Initial ECG Rhythm: S.Tach Initial ECG Intervals: Normal Initial ECG Comparisson: Unchanged Comment Slightly increased QRS. No significant Q waves, ST elevation, or T wave inversion. EKG is similar to previous. Diagnostic Imaging Diagonstic Imaging: Xray Plain Films/CT/US/NM/MRI: chest Comments [facility]. [place], [place] NAME: ALESSIA ARREOLA [facility] REC#: [id number] PT STATUS: REG ER : 1950 PHYSICIAN: WILTON GAMBOA APRN ADMIT DATE: 05/30/22/ER Signed Date of Exam:05/30/22 CHEST 1 VIEW, AP/PA ONLY CHEST 1 VIEW, AP/PA ONLY INDICATION: Chest pain. COMPARISON: Chest radiograph 09/30/2014 FINDINGS: Lungs: Normal lung volume. No focal consolidation. Stable pulmonary vasculature. Pleura: No pleural effusion or pneumothorax. Heart and Mediastinum: Cardiomediastinal silhouette and great vessels of the thorax are stable. Osseous Structures and Soft Tissues: No acute osseous abnormality. Normal soft tissues. IMPRESSION: No acute cardiopulmonary process. Dictated by: Dictated on workstation # [id number] Dict: 05/30/22 1800 Trans: 05/30/221800 [facility] [place] [id number] Interpreted by: BLADE SANCHEZ DO Electronically signed by: BLADE SANCHEZ DO 05/30/221800 Departure Impression Primary Impression: Chest pain Qualified Codes: R07.9 - Chest pain, unspecified Additional Impressions: Tachycardia Chronic kidney disease Qualified Codes: N18.9 - Chronic kidney disease, unspecified Enlarged thyroid Anemia Qualified Codes: D64.9 - Anemia, unspecified Disposition: 01 HOME, SELF-CARE Condition: Stable Departure-Patient Inst. Decision time for Depature: 21:15 Referrals: [facility] (PCP/Family) Primary Care Physician Patient Instructions: Chest Pain That Is Not Caused by the Heart (DC) Add. Discharge Instructions: Follow-up with your primary care provider and possibly cardiology. Have the biopsy of the thyroid completed. You may try ibuprofen or aspirin for the chest pain, do not take for long-term due to your decreased kidney function. Return for worsening chest pain, worsening of your shortness of breath, persistent elevated heart rate, or any other new, concerning, worsening symptoms. All discharge instructions reviewed with patient and/or family. Voiced understanding. WILTON GAMBOA APRN May 30, 2022 17:23
[2022-05-30] MEDS ORDERED: NS IV 1000 ML 1,000 ML IV SCH ×2 (17:30→19:45)
[2022-05-30 17:32] LABS: ALBUMIN 3.9 GM/DL (3.2-4.5); POTASSIUM 4.9 MMOL/L (3.6-5.0); PROTHROMBIN TIME PATIENT 13.7 SEC (12.2-14.7)
[2022-05-30 17:33] LABS: CALCIUM 9.5 MG/DL (8.5-10.1)
[2022-05-30 17:34] LABS: TOTAL PROTEIN 7.3 GM/DL (6.4-8.2)
[2022-05-30 17:36] LABS: BILIRUBIN,TOTAL 0.3 MG/DL (0.1-1.0)
[2022-05-30 17:38] LABS: CREATININE SERUM 1.12 MG/DL (0.60-1.30)
[2022-05-30] MEDS ORDERED: diphenhydrAMINE 50 MG/ML INJ (BENADRYL) IVP ONE (18:00)
[2022-05-30] MEDS ORDERED: methylPREDNISolone 125 MG (Solu-MEDROL) VIAL IVP ONE (18:00)
--- NOTE | 2022-05-30 18:02 | Diagnostic Imaging Report ---
CHEST 1 VIEW, AP/PA ONLY INDICATION: Chest pain. COMPARISON: Chest radiograph 09/30/2014 FINDINGS: Lungs: Normal lung volume. No focal consolidation. Stable pulmonary vasculature. Pleura: No pleural effusion or pneumothorax. Heart and Mediastinum: Cardiomediastinal silhouette and great vessels of the thorax are stable. Osseous Structures and Soft Tissues: No acute osseous abnormality. Normal soft tissues. IMPRESSION: No acute cardiopulmonary process. Dictated by: Dictated on workstation # [id number]
[2022-05-30] MEDS ORDERED: NS 100 ML (IVPB) BAG IV ONE (18:45)
[2022-05-30] MEDS ORDERED: IOHEXOL 350 MG/ML 100 ML (OMNIPAQUE 350) VIAL IV ONE (18:45)
[2022-05-30] MEDS ORDERED: HOLD METFORMIN - RECEIVED CONTRAST 20 ML VIAL IV SCH (18:45)
--- NOTE | 2022-05-30 18:48 | Diagnostic Imaging Report ---
INDICATION: Chest pain, dyspnea and elevated d-dimer. FINDINGS: There is good opacification of pulmonary arteries without intraluminal filling defect. There is no evidence of focal infiltrate in either lung. Calcified granulomas are noted in the subcarinal region as well as the right hilum and right lower lobe. There is heterogeneous enlargement of thyroid gland. There is no significant pleural or pericardial fluid. Upper abdominal sections reveal calcified granulomas in the liver and spleen. IMPRESSION: No CTA evidence of pulmonary embolism or other great vessel abnormality in the thorax. Note is made of granulomatous residua in the chest and abdomen with probable multinodular goiter. Dictated by: Dictated on workstation # [id number]
[2022-05-30 20:11] LABS: FREE T4 (FREE THYROXINE) 1.04 NG/DL (0.70-1.48)
[2022-05-30] MEDS ORDERED: meTOprolol 5 MG/5 ML (LOPRESSOR) VIAL IV ONE (21:00)
[2022-05-30 21:34] VITALS: BP 159/104
== END 2022-05-30 21:38 | disposition home or self-care (01) ==
LOC: EDUNIT# 16:51 → ER 16:54
DX: R07.89 Other chest pain (principal); E04.9 Nontoxic goiter, unspecified; D64.9 Anemia, unspecified; E11.22 Type 2 diabetes mellitus with diabetic chronic kidney disease; I12.9 Hypertensive chronic kidney disease with stage 1 through stage 4 chronic kidney disease, or unspecified chronic kidney disease; N18.9 Chronic kidney disease, unspecified; R00.0 Tachycardia, unspecified; R79.1 Abnormal coagulation profile; Z79.899 Other long term (current) drug therapy
CPT/HCPCS: 36415; 71045; 71275; 80053; 83735; 84439; 84443; 84484; 85025; 85379; 85610; 85730; 93005; 93041

== ENCOUNTER → 2022-06-05 | Outpatient (CLI) | payer MEDICARE, OTHER ==
[~2022-06-05] VITALS: Ht 177.8 cm; Wt 158.6 kg
[~2022-06-05] MED LIST changes: +LIDOCAINE 1% INJ 10 ML VIAL INJ ONE
--- NOTE | 2022-06-05 16:11 | Diagnostic Imaging Report ---
INDICATION: Left lobe thyroid nodule. Patient presents for ultrasound-guided fine-needle aspiration. PROCEDURE: Patient was brought to the procedure room and placed on table in the supine position. Ultrasound imaging of the left neck was performed to evaluate appropriate entry site. Left neck was prepped and draped in the usual sterile fashion. Small amount 1% lidocaine was utilized for local anesthesia. A total of four passes were made into the dominant hypoechoic solid nodule in the inferior and posterior left lobe of the thyroid utilizing 25-gauge needles and fine-needle aspiration technique. Needle was removed and hemostasis was obtained. Patient tolerated the procedure well and left the Department in stable condition. IMPRESSION: Successful ultrasound-guided fine needle aspiration of left lobe dominant thyroid nodule. Pathology results are currently pending. Dictated by: Dictated on workstation # [id number]
== END ==
LOC: RAD 14:28
PROVIDERS: ATTEND Plastic Surgery Plastic Surgery Within the Head and Neck
DX: E07.9 Disorder of thyroid, unspecified (principal)
CPT/HCPCS: 88173; 88305

== ENCOUNTER → 2022-08-18 | Outpatient (CLI) | payer MEDICARE, OTHER ==
[~2022-08-18] MED LIST changes: -LIDOCAINE 1% INJ 10 ML VIAL INJ ONE
== END ==
LOC: CARD 11:26
PROVIDERS: ATTEND Internal Medicine Cardiovascular Disease
DX: R00.2 Palpitations (principal)
CPT/HCPCS: 93225; 93226